=== PATIENT | male | born 1940 | race Caucasian/White ===

== ENCOUNTER 2016-12-22 17:04 | Emergency (ER) | payer OTHER ==
[~2016-12-22] VITALS: Ht 172.7 cm; Wt 71.4 kg
[~2016-12-22 17:04] MED LIST: ACARBOSE50 MG; ACARBOSE50 MG PO; ASPIRIN81 M1; ATARAX,VISTARIL25 MG PO; BENADRYL50 MG PO; CLEOCIN300 MG PO; CORTIZONE-1028 GM TP; DIOVAN HCT 11 TABLE1 PO; ECOTRIN325 MG PO; GEMFIBROZIL600 MG PO; GLIPIZIDE10 MG PO; GLIPIZIDE5 MG PO; JANUVIA100 MG PO; LIPITOR5 MG PO; LOPID600 MG PO; LOSARTAN-HCTZ1 EAC1; LOSARTAN-HCTZ1 EAC1 PO; METFORMIN HCL1000 MG PO; NORVASC10 MG PO; VIBRAMYCIN100 MG PO
[2016-12-22] MEDS ORDERED: HYDRALAZINE HCL50 MG PO (19:24)
[2016-12-22] MEDS ORDERED: PREDNISONE20 MG PO (19:24)
[2016-12-22] MEDS ORDERED: KENALOG,ARISTOC15 GM TP (19:24)
[2016-12-22 20:03] VITALS: BP 158/79
== END 2016-12-22 20:10 | disposition home or self-care (01) ==
LOC: EME 17:04
DX: L50.9 Urticaria, unspecified (principal); E11.9 Type 2 diabetes mellitus without complications; J44.9 Chronic obstructive pulmonary disease, unspecified; E78.5 Hyperlipidemia, unspecified; I10 Essential (primary) hypertension; Z79.84 Long term (current) use of oral hypoglycemic drugs; Z79.82 Long term (current) use of aspirin; F17.200 Nicotine dependence, unspecified, uncomplicated
CPT/HCPCS: 99281; 99284; J7512

== ENCOUNTER 2017-10-05 17:11 | Emergency (ER) | payer OTHER ==
[~2017-10-05] VITALS: Ht 172.7 cm; Wt 79.3 kg
[~2017-10-05 17:11] MED LIST changes: +HYDRALAZINE HCL50 MG PO; +KENALOG,ARISTOC15 GM TP; +PREDNISONE20 MG PO
[2017-10-05 18:42] LABS: BASOPHIL COUNT 0.1 K/uL (0-0.1); EOSINOPHIL (%) 11.9 % (0-5); EOSINOPHIL COUNT 0.9 K/uL (0-0.3); HEMATOCRIT 36.3 % (38.0-50.0); IMMATURE GRANULOCYTE (%) 0.7 % (0.0-0.7); IMMATURE GRANULOCYTE COUNT 0.1 K/uL; LYMPHOCYTE COUNT 1.6 K/uL (1.0-2.8); MCH 31.5 PG (29.0-34.0); MCHC 33.9 G/DL (30.0-36.0); MCV 92.8 FL (86-99); MEAN PLAT.VOLUME 9.7 uM^3 (9.0-12.4); MONOCYTE (%) 9.1 % (3-12); MONOCYTE COUNT 0.7 K/uL (0-0.8); NEUTROPHIL (%) 55.1 % (45-76); PLATELET COUNT 191 K/uL (156-360); RBC DIS.WIDTH-CV 14.3 % (11.8-14.6); RBC DIS.WIDTH-SD 48.6 % (39-53); RED BLOOD COUNT 3.91 M/uL (4.00-5.50); WHITE BLOOD COUNT 7.3 K/uL (4.1-10.2)
[2017-10-05 18:51] LABS: CHLORIDE 109 mEq/L (99-109); POTASSIUM 3.4 mEq/L (3.7-5.4); SODIUM 140 mEq/L (136-147)
[2017-10-05 18:54] LABS: GLUCOSE 105 mg/dL (70-99)
[2017-10-05 18:55] LABS: ANION GAP 7 MEQ/L (2-14)
[2017-10-05 18:56] LABS: TOTAL BILIRUBIN 0.2 mg/dL (0.0-1.0)
[2017-10-05 18:57] LABS: ALKALINE PHOSPHATASE 73 IU/L (3-129); GFR ESTIMATE (CALCULATED) > 59 mL/min/
[2017-10-05 18:58] LABS: UREA NITROGEN (BUN) 27 mg/dL (9-23)
[2017-10-05 19:04] LABS: TROP-I INTERPRETATION NEGATIVE; TROPONIN-I < 0.01 ng/mL (0.0-0.30)
[2017-10-05] MEDS ORDERED: KEFLEX500 MG PO (21:45)
[2017-10-05 22:10] VITALS: BP 166/67
== END 2017-10-05 22:23 | disposition home or self-care (01) ==
LOC: EME 17:11
PROVIDERS: Emergency Medicine
DX: L03.119 Cellulitis of unspecified part of limb (principal); R60.0 Localized edema; Z98.890 Other specified postprocedural states; E11.9 Type 2 diabetes mellitus without complications; J44.9 Chronic obstructive pulmonary disease, unspecified; I10 Essential (primary) hypertension; F17.200 Nicotine dependence, unspecified, uncomplicated; N28.9 Disorder of kidney and ureter, unspecified; Z79.84 Long term (current) use of oral hypoglycemic drugs; Z79.82 Long term (current) use of aspirin; Z88.8 Allergy status to other drugs, medicaments and biological substances
CPT/HCPCS: 71010; 80053; 83880; 84484; 85025; 93005; 93970; 99281; 99285

== ENCOUNTER 2018-01-11 09:37 | Emergency (ER) | payer OTHER ==
[~2018-01-11] VITALS: Ht 172.7 cm; Wt 75.2 kg
[~2018-01-11 09:37] MED LIST changes: +KEFLEX500 MG PO
[2018-01-11] MEDS ORDERED: KENALOG,ARISTOC80 G1 TP (12:52)
[2018-01-11] MEDS ORDERED: ATARAX,VISTARIL25 MG PO (12:52)
[2018-01-11 13:24] VITALS: BP 114/66
== END 2018-01-11 13:30 | disposition home or self-care (01) ==
LOC: EME 09:37
DX: L03.116 Cellulitis of left lower limb (principal); L30.9 Dermatitis, unspecified; R60.0 Localized edema; E11.9 Type 2 diabetes mellitus without complications; Z79.84 Long term (current) use of oral hypoglycemic drugs; I10 Essential (primary) hypertension; E78.5 Hyperlipidemia, unspecified; J44.9 Chronic obstructive pulmonary disease, unspecified; F17.200 Nicotine dependence, unspecified, uncomplicated; Z88.8 Allergy status to other drugs, medicaments and biological substances
CPT/HCPCS: 93971; 99281; 99283

== ENCOUNTER 2018-03-27 01:34 | Emergency (ER) | payer OTHER ==
[~2018-03-27] VITALS: Ht 172.7 cm; Wt 76.1 kg
[~2018-03-27 01:34] MED LIST changes: +KENALOG,ARISTOC80 G1 TP
[2018-03-27 03:35] LABS: HEMATOCRIT 38.2 % (38.0-50.0); HEMOGLOBIN 13.2 G/DL (12.5-16.6); MCH 31.2 PG (29.0-34.0); MCHC 34.6 G/DL (30.0-36.0); MCV 90.3 FL (86-99); PLATELET COUNT 278 K/uL (156-360); RBC DIS.WIDTH-CV 14.2 % (11.8-14.6); RBC DIS.WIDTH-SD 47.5 % (39-53); RED BLOOD COUNT 4.23 M/uL (4.00-5.50); WHITE BLOOD COUNT 10.4 K/uL (4.1-10.2)
[2018-03-27 03:45] LABS: CHLORIDE 102 mEq/L (99-109); POTASSIUM 3.3 mEq/L (3.7-5.4); SODIUM 139 mEq/L (136-147)
[2018-03-27 03:47] LABS: GLUCOSE 134 mg/dL (70-99)
[2018-03-27 03:50] LABS: CREATININE 1.6 mg/dL (0.6-1.3); GFR ESTIMATE (CALCULATED) 45 mL/min/ (58.99-99999)
[2018-03-27 03:51] LABS: UREA NITROGEN (BUN) 26 mg/dL (9-23)
[2018-03-27] MEDS ORDERED: ATARAX,VISTARIL25 MG PO (04:00)
[2018-03-27 04:25] VITALS: BP 162/75
== END 2018-03-27 04:25 | disposition home or self-care (01) ==
LOC: EME 01:34
PROVIDERS: Emergency Medicine
DX: L03.116 Cellulitis of left lower limb (principal); L73.9 Follicular disorder, unspecified; J44.9 Chronic obstructive pulmonary disease, unspecified; E11.9 Type 2 diabetes mellitus without complications; Z79.84 Long term (current) use of oral hypoglycemic drugs; I10 Essential (primary) hypertension; E78.5 Hyperlipidemia, unspecified; F17.200 Nicotine dependence, unspecified, uncomplicated; Z88.8 Allergy status to other drugs, medicaments and biological substances
CPT/HCPCS: 80048; 85027; 93971; 99281; 99284; Q0177